=== PATIENT | female | born 1950 | race Caucasian/White ===

== ENCOUNTER → 2025-05-28 13:09 | Outpatient (CLI) | payer MEDICARE, OTHER, SELFPAY ==
--- NOTE | 2025-05-28 13:14 | DI.US.S_ITS ---
MM diagnostic mammo unilat LT, US breast LT limited: 05/28/2025 BI-RADS: 2 CLINICAL: 75-year old female for left diagnostic mammogram and left diagnostic breast ultrasound. The patient presents for additional evaluation of an inconclusive screening mammogram - focal asymmetry. No Tyrer-Cuzick risk score calculation due to the patient's personal history of breast cancer. Patient reports a history of right breast carcinoma diagnosed at age 42. Status-post right lumpectomy with radiation therapy and hormonal therapy. No first-degree family history of breast cancer. The patient had a prior right breast biopsy. PRIOR EXAMS 01/19/2025, 01/31/2024, 09/13/2023, 12/08/2022, 11/02/2021. MAMMOGRAPHY TECHNIQUE: 2D and 3D (tomosynthesis) digital mammographic views obtained, with additional images as needed for full coverage. Current study was also evaluated with a Computer Aided Detection (CAD) system. ULTRASOUND TECHNIQUE TARGETED Left Breast Ultrasound: Real-time ultrasound exam was performed focused to area of clinical and/or imaging concern. Real-time jenkins scale and color doppler imaging of the area of clinical interest was performed with image documentation. DENSITY Left: C. The breast is heterogeneously dense, which may obscure small masses. MAMMOGRAPHY FINDINGS Left: Upper Outer Quadrant, Middle depth: The focal asymmetry seen on recent screening mammogram did not persist with additional imaging and is consistent with superimposition of normal breast tissue. ULTRASOUND FINDINGS Left: Upper Outer at 2:00, 5 cm from nipple, measuring 0.5 x 0.3 x 0.3 cm: There is a complicated cyst showing posterior acoustic enhancement. Doppler shows no vascularity. This is an incidental finding. IMPRESSION: Left * No evidence of malignancy with benign findings. RECOMMENDATIONS Bilateral * Annual screening mammography. COMMENTS: Findings and recommendations were conveyed to the patient during today's evaluation. OVERALL ASSESSMENT CATEGORY BI-RADS-2: Benign. The [employer] recommends annual screening mammography beginning at age 40 for women with average risk of breast cancer. ELECTRONICALLY SIGNED: Cinthya Smith M.D. on 05/28/2025 at 02:15:09 PM PT Interpreting Station ID: [id number]
== END ==
LOC: MAMMO 13:13
PROVIDERS: PCP Student in an Organized Health Care Education/Training Program; Referring Provider Student in an Organized Health Care Education/Training Program; Visit Provider Student in an Organized Health Care Education/Training Program
DX: R92.8 Other abnormal and inconclusive findings on diagnostic imaging of breast (principal); N60.02 Solitary cyst of left breast; R92.332 Mammographic heterogeneous density, left breast; Z85.3 Personal history of malignant neoplasm of breast
CPT/HCPCS: 76642; 77065; G0279